=== PATIENT | male | born 1945 | race Caucasian/White ===

== ENCOUNTER 2017-11-01 11:58 | Emergency (ER) | payer MEDICARE ==
--- NOTE | 2017-11-01 13:31 | ED Physician Documentation ---
History of Present Illness - Stated complaint Stated Complaint: MALE - Chief complaint Chief Complaint: General - Additonal information Additional information: hx from pt 72 male hx prostate cancer s/p surgery 2016 developed hematuria seen at [facility] last night diff Isaac, had to be placed by urology with a dolator no with gross hematuria and cath clotted and wont drain bladder pain no fever vomit Review of Systems Constitutional: denies: Fever, Chills GI: reports: Abdominal Pain : reports: Isaac Problem PD PAST MEDICAL HISTORY - Past Medical History Past Medical History: Yes : Other Other Past Medical History: bladder cancer - Past Surgical History Past Surgical History: Yes - Present Medications Home Medications: Ambulatory Orders Medication Instructions Recorded Confirmed Leuprolide [Lupron] 0 mg 11/01/17 - Allergies Allergies/Adverse Reactions: Allergies Allergy/AdvReac Type Severity Reaction Status Date / Time Penicillins Allergy Unknown Verified 11/01/17 12:59 - Social History Does the pt smoke?: No Smoking Status: Never smoker PD ED PE NORMAL - Vitals Vital signs reviewed: Yes - Cardiac Cardiac: RRR - Respiratory Respiratory: No respiratory distress, Clear bilaterally - Abdomen Abdomen: Soft, Other (mild suprapubic discomfort) - Neuro Neuro: Alert and oriented X 3 Results - Vitals Vitals: Vital Signs - 24 hr 11/01/17 12:03 Temperature 36.2 C L Heart Rate 70 Respiratory 20 Rate Blood Pressure 151/88 H O2 Saturation 100 Oxygen O2 Source Room air PD MEDICAL DECISION MAKING - ED course ED course: catheter plaxced by urology not a 3 way but able to be manually irrigated by nrsing and now draining clear yellow urine will dc has urology fup tomorrow had a UA Ucx run yesterday - results pending Departure - Departure Disposition: Home, Self Care Clinical Impression: Hematuria Qualifiers: Hematuria type: gross Qualified Code(s): R31.0 - Gross hematuria Condition: Good Instructions: ED Catheter Care [place], ED Hematuria Follow-Up: Arben Conn MD [Primary Care Provider] - Comments: If the catheter becomes blocked again, come back to the ER Otherwise follow up with urology tomorrow as planned
[2017-11-01 14:15] VITALS: BP 134/95
== END 2017-11-01 14:14 | disposition home or self-care (01) ==
LOC: ED 11:58
DX: R31.0 Gross hematuria (principal); T83.098A Other mechanical complication of other urinary catheter, initial encounter; Y84.6 Urinary catheterization as the cause of abnormal reaction of the patient, or of later complication, without mention of misadventure at the time of the procedure; Z85.46 Personal history of malignant neoplasm of prostate; Z85.51 Personal history of malignant neoplasm of bladder
CPT/HCPCS: 99283